=== PATIENT | female | born 1975 | race Caucasian/White ===

== ENCOUNTER 2017-10-23 00:30 | Inpatient (IN) | payer MEDICARE ==
[2017-10-23] MEDS ORDERED: ALBUTEROL SULFATE 0.083% NEB 2.5 MG/3 ML AMPUL NEB ONE ×2 (00:42)
[2017-10-23] MEDS ORDERED: METHYLPREDNISOLONE INJ 125 MG/2 ML SDV IV ONE (00:42)
[2017-10-23] MEDS ORDERED: NORMAL SALINE 1000 ML 1,000 ML IV ONE (00:43)
[2017-10-23] MEDS ORDERED: AZITHROMYCIN 250 MG TABLET PO ONE (00:47)
[2017-10-23] MEDS ORDERED: CEFTRIAXONE INJ 1000 MG VIAL IV ONE (00:47)
--- NOTE | 2017-10-23 01:28 | RADIOLOGY REPORT (SQ) ---
CXR- 1 VIEW Clinical history: Cough and shortness of breath. Comparison: None. Technique: 1 view of the chest submitted for review. Findings: Lungs are adequately expanded. Port-A-Cath is demonstrated with tip overlying the SVC. There are some early interstitial opacities seen in the lung bases. No effusion. The cardiac silhouette measures within normal. Pulmonary vascularity is unremarkable. Osseous structures are within normal limits for age. Impression: Interstitial opacity seen in the lung bases. Please correlate for early pneumonia.
[2017-10-23 02:02] LABS: VENOUS BLOOD BASE EXCESS -1.1 mmol/L; VENOUS BLOOD HCO3 24.1 mmol/L (20-32); VENOUS BLOOD PH 7.38 (7.30-7.42)
[2017-10-23 02:04] LABS: HEMATOCRIT 36.7 % (36.0-47.0); HEMOGLOBIN 12.1 g/dL (12.0-15.5); MEAN CORPUSCULAR HEMOGLOBIN 27.3 pg (27.0-33.4); MEAN CORPUSCULAR VOLUME 83 fl (80-97); PLATELET COUNT 355 10^3/uL (150-450); RED BLOOD COUNT 4.44 10^6/uL (3.72-5.28); RED CELL DISTRIBUTION WIDTH 15.4 % (11.5-14.0); WHITE BLOOD COUNT 29.9 10^3/uL (4.0-10.5)
[2017-10-23 02:17] LABS: ANION GAP 14 (5-19); BLOOD UREA NITROGEN 10 mg/dL (7-20); CALCIUM 8.6 mg/dL (8.4-10.2); CARBON DIOXIDE 20 mmol/L (22-30); CHLORIDE 108 mmol/L (98-107); GLUCOSE 142 mg/dL (75-110); POTASSIUM 4.4 mmol/L (3.6-5.0); SODIUM 141.6 mmol/L (137-145)
[2017-10-23 02:25] LABS: ABSOLUTE LYMPHOCYTES# (MANUAL) 1.2 10^3/uL (0.5-4.7); ABSOLUTE MONOCYTES # (MANUAL) 1.2 10^3/uL (0.1-1.4); ABSOLUTE NEUTROPHILS# (MANUAL) 27.5 10^3/uL (1.7-8.2); BAND NEUTROPHILS % (MANUAL) 1 % (3-5); BASOPHILS % (MANUAL) 0 % (0-2); EOSINOPHILS % (MANUAL) 0 % (0-6); LYMPHOCYTES % (MANUAL) 4 % (13-45); MONOCYTES % (MANUAL) 4 % (3-13); SEGMENTED NEUTROPHILS % (MAN) 91 % (42-78); TOTAL CELLS COUNTED 100
[2017-10-23 02:30] LABS: ANISOCYTOSIS 1+
[2017-10-23 02:31] LABS: HYPOCHROMASIA 1+
[2017-10-23 02:33] LABS: PLATELET COMMENT ADEQUATE
--- NOTE | 2017-10-23 02:50 | ER Document Report ---
ED General - General Chief Complaint: Respiratory Distress Stated Complaint: RESPIRATORY DISTRESS Time Seen by Provider: 10/23/17 00:42 Notes: Patient is a 42-year-old female with a past medical history of chronic interstitial lung disease, sarcoidosis with pulmonary involvement, asthma, prior tracheostomy due to respiratory failure who presents with 24 hours of progressively worsening shortness of breath, cough, sputum production and generalized weakness. She was brought in by EMS, initially found to be saturating in 89% on room air and in moderate respiratory distress. She reports that receiving multiple nebulizer she has had significant improvement of her symptoms. She notes that any exertion worsened her symptoms. The patient reports that she does not require oxygen at baseline although does have it available to her as an as-needed basis. She did not bring her medications with her as she is currently visiting from out of town. She has been unable to contact her doctor regarding today's concerns. She states that symptoms feel very similar to when she has had a pneumonia in the past. TRAVEL OUTSIDE OF THE [place] IN LAST 30 DAYS: No - Related Data Allergies/Adverse Reactions: No Known Allergies Allergy (Verified 10/23/17 01:11) Past Medical History - General Information source: Patient - Social History Smoking Status: Current Every Day Smoker Frequency of alcohol use: Occasional Drug Abuse: None Family History: Reviewed & Not Pertinent Patient has suicidal ideation: No Patient has homicidal ideation: No Renal/ Medical History: Denies: Hx Peritoneal Dialysis Musculoskeletal Medical History: Reports Hx Arthritis Psychiatric Medical History: Reports: Hx Bipolar Disorder Review of Systems - Review of Systems Notes: Constitutional: Positive for fever. HENT: Negative for sore throat. Eyes: Negative for visual changes. Cardiovascular: Negative for chest pain. Respiratory: Positive for shortness of breath. Gastrointestinal: Negative for abdominal pain, vomiting or diarrhea. Genitourinary: Negative for dysuria. Musculoskeletal: Negative for back pain. Skin: Negative for rash. Neurological: Negative for headaches, weakness or numbness. 10 point ROS negative except as marked above and in HPI. Physical Exam - Vital signs Interpretation: Tachycardic, Tachypneic, Febrile Notes: PHYSICAL EXAMINATION: GENERAL: Appears moderately uncomfortable but in no acute distress HEAD: Atraumatic, normocephalic. EYES: Pupils equal round and reactive to light, extraocular movements intact, sclera anicteric, conjunctiva are normal. ENT: nares patent, oropharynx clear without exudates. Moderately dry mucous membranes. NECK: Normal range of motion, supple without lymphadenopathy LUNGS: Moderate tachypnea but no respiratory distress or retractions. Scattered respiratory wheezing in all lung boswell. Bibasilar crackles. HEART: Regular tachycardia without murmurs ABDOMEN: Soft, nontender, normoactive bowel sounds. No guarding, no rebound. No masses appreciated. EXTREMITIES: Normal range of motion, no pitting or edema. No cyanosis. NEUROLOGICAL: No focal neurological deficits. Moves all extremities spontaneously and on command. PSYCH: Normal mood, normal affect. SKIN: Warm, Dry, normal turgor, no rashes or lesions noted. Course - Re-evaluation Re-evalutation: 10/23/17 02:51 Presentation of a 42-year-old female with a past medical history of chronic interstitial lung disease, sarcoidosis with associated pulmonary nodules, asthma , history of prior tracheostomy from respiratory failure who presents with shortness of breath, cough and fever. Apparently for EMS the patient was hypoxic to 89%. After receiving nebulizers in route to the hospital her work of breathing has apparently much improved at the time of my initial evaluation she is currently saturating 91% on room air. No longer in respiratory distress although is noted to be mild the tachypneic. Fever is confirmed here at 101.7 F. Patient has scattered wheezing throughout, crackles at the bases bilaterally. Appears mildly dehydrated. Vitals notable for tachycardia, mild persistent hypoxemia. Chest x-ray is obtained showing bibasilar infiltrates consistent with developing pneumonia. Patient's labs are notable for marked leukocytosis with a neutrophilic predominance. Mild elevation of lactate at 2.9. Chemistries otherwise unremarkable. VBG unremarkable. Given patient's chronic lung disease, markedly elevated leukocytosis, elevated lactate, and oxygen dependence to maintain her saturations above 92% she will require hospitalization. I discussed with the hospitalist who has agreed. The patient is agreeable with the treatment plan. - Laboratory Result Diagrams: 10/23/17 01:47 10/23/17 01:47 Laboratory results interpreted by me: 10/23/17 10/23/17 10/23/17 01:47 01:47 01:47 WBC 29.9 H RDW 15.4 H Seg Neuts % (Manual) 91 H Band Neutrophils % 1 L Lymphocytes % (Manual) 4 L Abs Neuts (Manual) 27.5 H Chloride 108 H Carbon Dioxide 20 L Glucose 142 H Lactic Acid 2.7 H - Diagnostic Test Radiology reviewed: Image reviewed, Reports reviewed Radiology results interpreted by me: 10/23/17 02:51 Chest x-ray: Patchy bibasilar infiltrates Discharge - Discharge Clinical Impression: Sarcoidosis, Chronic interstitial lung disease, Hypoxemia Sepsis Qualifiers: Sepsis type: sepsis due to unspecified organism Qualified Code(s): A41.9 - Sepsis, unspecified organism Pneumonia Qualifiers: Pneumonia type: due to unspecified organism Laterality: bilateral Lung location : lower lobe of lung Qualified Code(s): J18.1 - Lobar pneumonia, unspecified organism Condition: Fair Disposition: ADMITTED INPATIENT Admitting Provider: Hospitalist Unit Admitted: Telemetry
[2017-10-23] MEDS: NORMAL SALINE 1000 ML 1,000 ML IV PRN ×2 (03:52→16:01)
--- NOTE | 2017-10-23 06:22 | PDOC H&P ---
History of Present Illness Admission Date/PCP: 10/23/17 02:44 Patient complains of: Dyspnea History of Present Illness: RABIA GARCIA is a 42 year old female presented to the emergency department secondary to shortness of breath. Patient has a complex past medical history including chronic interstitial lung disease, history of sarcoidosis which is now become pulmonary fibrosis and asthma. States she uses oxygen intermittently at home. States yesterday as she was traveling from [place] where she lives she became short of breath with minimal exertion and was noted to be hypoxic. States she had left her medications at home and has not been feeling well for the past 2 days. Patient was noted to have a temperature of 101.9 and was tachycardic upon arrival to ER. Past Medical History Past Medical History: RA, Sjogrens, Antisynthetase syndrome. Pulmonary Medical History: Reports: Asthma, Chronic Obstructive Pulmonary Disease (COPD), Intubation, Pneumonia Pulmonary History Note: Chronic interstitial lung disease, hx of sarcoidosis with progression to pulmonary fibrosis, Musculoskeltal Medical History: Reports: Arthritis Psychiatric Medical History: Reports: Bipolar Disorder Hematology: Reports: Anemia Past Surgical History Past Surgical History: Reports: Section, Cholecystectomy, Tonsillectomy , Vascular Surgery - Ligation and closure of saphenous vein Social History Smoking Status: Current Every Day Smoker Family History Family History: Reviewed & Not Pertinent Parental Family History Reviewed: Yes Children Family History Reviewed: Yes Sibling(s) Family History Reviewed.: Yes Medication/Allergy Allergies/Adverse Reactions: No Known Allergies Allergy (Verified 10/23/17 01:11) Review of Systems Constitutional: PRESENT: chills, fever(s), night sweats Cardiovascular: PRESENT: dyspnea on exertion. ABSENT: chest pain, edema, palpitations Respiratory: PRESENT: cough, dyspnea. ABSENT: hemoptysis, sputum Gastrointestinal: ABSENT: abdominal pain, nausea, vomiting Physical Exam Vital Signs: Temp Pulse Resp BP Pulse Ox 17 99/63 L 91 L 10/23/17 03:01 10/23/17 03:01 10/23/17 03:01 Intake & Output 10/21/17 10/22/17 10/23/17 06:59 06:59 06:59 Intake Total 1000 Balance 1000 Weight 120.202 kg General appearance: PRESENT: no acute distress Head exam: PRESENT: atraumatic Eye exam: PRESENT: conjunctiva pink, EOMI, PERRLA Ear exam: PRESENT: normal external ear exam Mouth exam: PRESENT: moist, neck supple, tongue midline Respiratory exam: PRESENT: decreased breath sounds, rhonchi, unlabored, wheezes. ABSENT: accessory muscle use Cardiovascular exam: PRESENT: RRR, +S1, +S2 Pulses: PRESENT: normal carotid pulses Vascular exam: PRESENT: normal capillary refill GI/Abdominal exam: PRESENT: normal bowel sounds, soft. ABSENT: distended, tenderness Rectal exam: PRESENT: deferred Extremities exam: ABSENT: calf tenderness Musculoskeletal exam: PRESENT: ambulatory, full ROM Neurological exam: PRESENT: alert, awake, oriented to person, oriented to place , oriented to time, CN II-XII grossly intact Psychiatric exam: PRESENT: normal mood Results Laboratory Results: 10/23/17 10/23/17 10/23/17 01:47 01:47 01:47 WBC 29.9 H Potassium 4.4 Chloride 108 H Creatinine 0.70 Lactic Acid 2.7 H Assessment & Plan - Diagnosis (1) Sepsis Qualifiers: Sepsis type: sepsis due to unspecified organism Qualified Code(s): A41.9 - Sepsis, unspecified organism Is this a current diagnosis for this admission?: Yes Plan: Patient appear to be septic upon arrival to emergency department. WBC 29,000, fever with temp of 101.9 and tachycardia. Maintain IV fluids overnight. Continue with IV antibiotic therapy. Blood cultures pending. DuoNeb every 4h as needed. Continue to trend lactic acid within normal limits. (2) Pneumonia Qualifiers: Pneumonia type: due to unspecified organism Laterality: bilateral Lung location: lower lobe of lung Qualified Code(s): J18.1 - Lobar pneumonia, unspecified organism Is this a current diagnosis for this admission?: Yes Plan: She started on azithromycin plus Rocephin, will continue with his regimen. Maintain IV fluids. Tylenol every 6 as needed fever. Telemetry monitoring. (3) Chronic interstitial lung disease Is this a current diagnosis for this admission?: Yes Plan: The patient's home medications and continue Solu-Medrol IV every 6 hours scheduled, DuoNeb's every 4 hours as needed. (4) Autoimmune disorder Is this a current diagnosis for this admission?: Yes Plan: Patient has a history of multiple autoimmune disorders including rheumatoid arthritis, Sjogren's, and anti-synthetase syndrome. Continue home medications, will adjust accordingly. - Time Time Spent: 30 to 50 Minutes Smoking Cessation Education: over 10 minutes Medications reviewed and adjusted accordingly: Yes Anticipated discharge: Home Within: within 36 hours
[2017-10-23] MEDS: GUAIFENESIN 600 MG TABLET.SA PO SCH ×2 (11:39→22:15)
[2017-10-23] MEDS: ENOXAPARIN SODIUM INJ 40 MG/0.4 ML DISP.SYRIN SUBCUT SCH (11:40)
[2017-10-23] MEDS: IPRATROPIUM/ALBUTEROL 0.5-2.5 MG/3 ML AMPUL NEB PRN ×2 (12:28→19:30)
[2017-10-23] MEDS ORDERED: MORPHINE SULFATE 10 MG/ML INJ IV ONE (14:00)
[2017-10-23 14:42] LABS: HEMATOCRIT 35.6 % (36.0-47.0); HEMOGLOBIN 11.5 g/dL (12.0-15.5); MEAN CORPUSCULAR HEMOGLOBIN 27.1 pg (27.0-33.4); MEAN CORPUSCULAR HGB CONC 32.2 g/dL (32.0-36.0); MEAN CORPUSCULAR VOLUME 84 fl (80-97); PLATELET COUNT 335 10^3/uL (150-450); RED BLOOD COUNT 4.24 10^6/uL (3.72-5.28); RED CELL DISTRIBUTION WIDTH 15.7 % (11.5-14.0); WHITE BLOOD COUNT 22.2 10^3/uL (4.0-10.5)
[2017-10-23 14:57] LABS: ALANINE AMINOTRANSFERASE 18 U/L (9-52); ALBUMIN 3.5 g/dL (3.5-5.0); ALKALINE PHOSPHATASE 98 U/L (38-126); ANION GAP 12 (5-19); ASPARTATE AMINO TRANSFERASE 27 U/L (14-36); BILIRUBIN,DIRECT 0.3 mg/dL (0.0-0.4); BILIRUBIN,TOTAL 0.3 mg/dL (0.2-1.3); BLOOD UREA NITROGEN 14 mg/dL (7-20); CALCIUM 8.8 mg/dL (8.4-10.2); CARBON DIOXIDE 20 mmol/L (22-30); CHLORIDE 112 mmol/L (98-107); CREATINE KINASE 30 U/L (30-135); GLUCOSE 166 mg/dL (75-110); PHOSPHORUS 2.4 mg/dL (2.5-4.5); POTASSIUM 4.8 mmol/L (3.6-5.0); SODIUM 143.9 mmol/L (137-145); TOTAL PROTEIN 6.8 g/dL (6.3-8.2)
[2017-10-23 15:08] LABS: ABSOLUTE LYMPHOCYTES# (MANUAL) 0.9 10^3/uL (0.5-4.7); ABSOLUTE MONOCYTES # (MANUAL) 0.4 10^3/uL (0.1-1.4); ABSOLUTE NEUTROPHILS# (MANUAL) 20.9 10^3/uL (1.7-8.2); BASOPHILS % (MANUAL) 0 % (0-2); EOSINOPHILS % (MANUAL) 0 % (0-6); LYMPHOCYTES % (MANUAL) 4 % (13-45); MONOCYTES % (MANUAL) 2 % (3-13); SEGMENTED NEUTROPHILS % (MAN) 94 % (42-78); TOTAL CELLS COUNTED 100
[2017-10-23 15:09] LABS: ANISOCYTOSIS 1+; CREATINE KINASE MB 0.65 ng/mL (<4.55); HYPOCHROMASIA SLIGHT; PLATELET COMMENT ADEQUATE
[2017-10-23 15:18] LABS: TROPONIN I < 0.012 ng/mL
[2017-10-23 15:32] LABS: APPEARANCE,URINE CLEAR; BILIRUBIN,URINE NEGATIVE (NEGATIVE); COLOR,URINE YELLOW; GLUCOSE, URINE NEGATIVE (NEGATIVE); KETONES,URINE NEGATIVE (NEGATIVE); LEUKOCYTE ESTERASE,URINE TRACE (NEGATIVE); NITRITE,URINE NEGATIVE (NEGATIVE); PROTEIN,URINE NEGATIVE (NEGATIVE); URINE SPECIFIC GRAVITY 1.021; UROBILINOGEN,URINE NEGATIVE mg/dL (<2.0)
--- NOTE | 2017-10-23 15:33 | RADIOLOGY REPORT (SQ) ---
EXAM DESCRIPTION: CTA CHEST COMPLETED DATE/TIME: 10/23/2017 3:12 pm REASON FOR STUDY: acute respiratory failure hypoxia/ ? IPF vs VTE. COMPARISON: Chest radiograph 10/23/2017 TECHNIQUE: CT scan of the chest performed using helical scanning technique with dynamic intravenous contrast injection. Images reviewed with lung, soft tissue and bone windows. Reconstructed coronal and sagittal MPR images reviewed. Additional 3 dimensional post-processing performed to develop Maximal Intensity Projection images (AK P). All images stored on PACS. All CT scanners at this facility use dose modulation, iterative reconstruction, and/or weight based d osing when appropriate to reduce radiation dose to as low as reasonably achievable (ALARA). [facility]: Dose Right [facility]: CareDose [facility]: Dose Right [facility]: Teradose 4D [facility]: [employer] CONTRAST TYPE AND DOSE: contrast/concentration: Isovue 350.00 mg/ml; Total Contrast Delivered: 87.0 ml; Total Saline Delivered: 99.0 ml Contrast bolus optimized for the pulmonary arteries. Not diagnostic for the aorta. RENAL FUNCTION: BUN 10; creatinine 0.70 RADIATION DOSE: CT Rad equipment meets quality standard of care and radiation dose reduction techniq ues were employed. CTDIvol: 33.1 - 40.1 mGy. DLP: 1485 mGy-cm. . LIMITATIONS: None. FINDINGS: LUNGS AND PLEURA: Patchy ground-glass opacities are seen throughout the lungs. No pleural effusion. No pneumothorax. The airways appear normal. AORTA AND GREAT VESSELS: No aneurysm. Contrast bolus not optimized for the aorta. HEART: No pericardial effusion. No significant coronary artery calcifications. PULMONARY ARTERIES: No emboli visualized in the main pulmonary arteries or the segmental branches. HILAR AND MEDIASTINAL STRUCTURES: Scattered reactive appearing mediastinal lymph nodes, the largest o f which is seen in the AP window measuring 1.2 cm in the short axis. HARDWARE: Right anterior chest wall Port-A-Cath. UPPER ABDOMEN: Status post cholecystectomy and bariatric surgery. THYROID AND OTHER SOFT TISSUES: No masses. No adenopathy. BONES: No acute or significant finding. 3D MIPS: Confirm above findings. OTHER: No other significant finding. IMPRESSION: 1. No pulmonary embolus. 2. Patchy ground-glass opacities are seen throughout the lungs. Differential considerations are bro ad to include both infectious (especially atypical) and noninfectious processes. COMMENT: Quality ID # [id number]: Final reports with documentation of one or more dose reduction techniques (e.g., Automated exposure control, adjustment of the mA and/or kV according to patient size, use of iterative reconstruction technique) TECHNICAL DOCUMENTATION: JOB ID: [id number] [employer]- All Rights Reserved Reading location - IP/workstation name: [email or web address]
[2017-10-23 15:37] LABS: FREE T4 (FREE THYROXINE) 1.09 ng/dL (0.78-2.19)
[2017-10-23 15:51] LABS: THYROID STIMULATING HORMONE 1.78 uIU/mL (0.47-4.68)
--- NOTE | 2017-10-23 17:28 | EKG REPORT ---
SEVERITY:- BORDERLINE ECG - SINUS TACHYCARDIA BORDERLINE PROLONGED QT INTERVAL : Confirmed by: Chloe Mares MD 23-Oct-2017 17:28:11
[2017-10-23] MEDS ORDERED: OXYCODONE-ACETAMINOPHEN 5-325 MG TABLET PO PRN (20:46)
[2017-10-23 20:58] LABS: CREATINE KINASE MB 0.82 ng/mL (<4.55); TROPONIN I < 0.012 ng/mL
--- NOTE | 2017-10-23 21:21 | PDOC PROGRESS REPORT ---
Subjective Progress Note for:: 10/23/17 Subjective:: Patient is a 42-year-old morbidly obese female admitted to the hospital for shortness of breath. Patient has complex medical history history of sarcoid and interstitial pulmonary fibrosis. 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 Patient states that this is happened to her before she has not been feeling well for the past few days. Currently patient is satting 90% on nasal cannula. Currently patient is sitting upright is able to complete her sentences answers questions herself. Patient is currently a smoker. Patient did have a miscarriage one time first trimester. Reason For Visit: SEPSIS, PNEUMONIA Physical Exam Vital Signs: Temp Pulse Resp BP Pulse Ox 98.0 F 108 H 18 125/81 92 10/23/17 19:12 10/23/17 19:31 10/23/17 19:31 10/23/17 19:12 10/23/17 19:31 Pulse Oximeter Continuous Start: 10/23/17 02: 39 Freq: RTQ4 Status: Active Document 10/23/17 19:31 CMI (Rec: 10/23/17 19:35 CMI [email or web address]) Pulse Oximetry Assessment Oxygen Saturation (92-100) 92 Oxygen Flow Rate (L/min) 13 Oxygen Delivery Method Partial-Rebreather Equipment Usage Equipment in Use Continuous SpO2 Machine # 3 Intake & Output 10/22/17 10/23/17 10/24/17 06:59 06:59 06:59 Intake Total 1000 1000 Balance 1000 1000 Weight 265 lb 296 lb 11.875 oz General appearance: PRESENT: no acute distress, cooperative, morbidly obese Head exam: PRESENT: atraumatic, normocephalic Eye exam: PRESENT: EOMI Ear exam: PRESENT: normal external ear exam Respiratory exam: PRESENT: wheezes. ABSENT: accessory muscle use, clear to auscultation deondre Cardiovascular exam: PRESENT: RRR Pulses: ABSENT: normal carotid pulses GI/Abdominal exam: PRESENT: normal bowel sounds, soft. ABSENT: distended, mass , tenderness Rectal exam: PRESENT: deferred Musculoskeletal exam: PRESENT: ambulatory Neurological exam: PRESENT: alert, awake, oriented to time, CN II-XII grossly intact Results Laboratory Results: 10/23/17 13:54 10/23/17 13:54 10/23/17 10/23/17 10/23/17 06:15 13:54 13:54 WBC 22.2 H RBC 4.24 Hgb 11.5 L Hct 35.6 L MCV 84 MCH 27.1 MCHC 32.2 RDW 15.7 H Plt Count 335 Seg Neutrophils % Not Reportable Lymphocytes % Not Reportable Monocytes % Not Reportable Eosinophils % Not Reportable Basophils % Not Reportable Absolute Neutrophils Not Reportable Absolute Lymphocytes Not Reportable Absolute Monocytes Not Reportable Absolute Eosinophils Not Reportable Absolute Basophils Not Reportable Sodium 143.9 Potassium 4.8 Chloride 112 H Carbon Dioxide 20 L Anion Gap 12 BUN 14 Creatinine 0.59 Est GFR ( Amer) > 60 Est GFR (Non-Af Amer) > 60 Glucose 166 H Lactic Acid 3.4 H Calcium 8.8 Phosphorus 2.4 L Magnesium 2.3 Total Bilirubin 0.3 AST 27 ALT 18 Alkaline Phosphatase 98 Total Protein 6.8 Albumin 3.5 TSH Free T4 Urine Color Urine Appearance Urine pH Ur Specific [place] Urine Protein Urine Glucose (UA) Urine Ketones Urine Blood Urine Nitrite Ur Leukocyte Esterase Urine WBC (Auto) Urine RBC (Auto) 10/23/17 10/23/17 13:54 15:17 WBC RBC Hgb Hct MCV MCH MCHC RDW Plt Count Seg Neutrophils % Lymphocytes % Monocytes % Eosinophils % Basophils % Absolute Neutrophils Absolute Lymphocytes Absolute Monocytes Absolute Eosinophils Absolute Basophils Sodium Potassium Chloride Carbon Dioxide Anion Gap BUN Creatinine Est GFR ( Amer) Est GFR (Non-Af Amer) Glucose Lactic Acid Calcium Phosphorus Magnesium Total Bilirubin AST ALT Alkaline Phosphatase Total Protein Albumin TSH 1.78 Free T4 1.09 Urine Color YELLOW Urine Appearance CLEAR Urine pH 6.0 Ur Specific [place] 1.021 Urine Protein NEGATIVE Urine Glucose (UA) NEGATIVE Urine Ketones NEGATIVE Urine Blood NEGATIVE Urine Nitrite NEGATIVE Ur Leukocyte Esterase TRACE H Urine WBC (Auto) 2 Urine RBC (Auto) 0 10/23/17 10/23/17 10/23/17 13:54 13:54 13:54 Creatine Kinase 30 CK-MB (CK-2) 0.65 Troponin I < 0.012 NT-Pro-B Natriuret Pep 235 H Impressions: Chest/Abdomen CTA 10/23/17 00:00 IMPRESSION: 1. No pulmonary embolus. 2. Patchy ground-glass opacities are seen throughout the lungs. Differential considerations are broad to include both infectious (especially atypical) and noninfectious processes. Assessment & Plan - Diagnosis (1) Acute respiratory failure Qualifiers: Respiratory failure complication: hypoxia Qualified Code(s): J96.01 - Acute respiratory failure with hypoxia Is this a current diagnosis for this admission?: Yes Plan: Attribute patient's acute respiratory failure with hypoxia bronchitis versus sarcoidosis. We will treat patient with IV antibiotics with a community-acquired pneumonia regimen and also steroids and nebulizer treatment. 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 Patient states she has been told that she has what looks like it could be a mixed connective tissue or an autoimmune disorder however they are not certain. (4) History of sudden cardiac arrest successfully resuscitated Is this a current diagnosis for this admission?: Yes Plan: Patient has a history of cardiac arrest. Patient does not know the etiology. We will monitor with telemetry. Patient already following with cardiology. - Time Time Spent with patient: 15-24 minutes Anticipated discharge: Home - Inpatient Certification Based on my medical assessment, after consideration of the patient's comorbidities, presenting symptoms, or acuity I expect that the services needed warrant INPATIENT care.: Yes I certify that my determination is in accordance with my understanding of Medicare's requirements for reasonable and necessary INPATIENT services [42 CFR 412.3e].: Yes Medical Necessity: Need for Nebulizer Therapy and Monitoring of Response
[2017-10-23] MEDS ORDERED: AZITHROMYCIN 500 MG in DEXTROSE 5%-WATER 250 ML IV SCH (22:00)
[2017-10-23] MEDS ORDERED: CEFTRIAXONE 1 GM/D5W RTU 1 GM/50 ML RTUPB IV SCH (22:00)
[2017-10-23] MEDS: METHYLPREDNISOLONE INJ 40 MG/1 ML SDV IV SCH (22:14)
[2017-10-23] MEDS: GABAPENTIN 300 MG CAPSULE PO SCH (22:15)
[2017-10-23] MEDS: LAMOTRIGINE 100 MG TABLET PO SCH (22:15)
[2017-10-23] MEDS: LITHIUM CARBONATE 450 MG TABLET.ER PO SCH (22:16)
[2017-10-23] MEDS ORDERED: CEFTRIAXONE INJ 500 MG VIAL ONE (22:25)
[2017-10-23] MEDS ORDERED: CEFTRIAXONE INJ 250 MG VIAL ONE (22:26)
[2017-10-23] MEDS ORDERED: AZITHROMYCIN INJ 500 MG VIAL IV PRN (22:59)
[2017-10-23] MEDS ORDERED: AZITHROMYCIN 500 MG in DEXTROSE 5%-WATER 250 ML IV ONE (23:00)
[2017-10-24 04:36] LABS: HEMATOCRIT 35.4 % (36.0-47.0); HEMOGLOBIN 11.1 g/dL (12.0-15.5); MEAN CORPUSCULAR HEMOGLOBIN 26.5 pg (27.0-33.4); MEAN CORPUSCULAR HGB CONC 31.4 g/dL (32.0-36.0); MEAN CORPUSCULAR VOLUME 84 fl (80-97); PLATELET COUNT 325 10^3/uL (150-450); RED CELL DISTRIBUTION WIDTH 15.7 % (11.5-14.0); WHITE BLOOD COUNT 27.3 10^3/uL (4.0-10.5)
[2017-10-24 05:33] LABS: CREATINE KINASE MB 0.87 ng/mL (<4.55)
[2017-10-24] MEDS: METHYLPREDNISOLONE INJ 40 MG/1 ML SDV IV SCH ×3 (05:41→22:57)
[2017-10-24] MEDS: NORMAL SALINE 1000 ML 1,000 ML IV PRN ×2 (05:41→16:47)
[2017-10-24 05:48] LABS: TROPONIN I < 0.012 ng/mL
[2017-10-24 06:03] LABS: ABSOLUTE LYMPHOCYTES# (MANUAL) 0.3 10^3/uL (0.5-4.7); ABSOLUTE MONOCYTES # (MANUAL) 0.3 10^3/uL (0.1-1.4); ABSOLUTE NEUTROPHILS# (MANUAL) 26.2 10^3/uL (1.7-8.2); BAND NEUTROPHILS % (MANUAL) 1 % (3-5); BASOPHILS % (MANUAL) 1 % (0-2); EOSINOPHILS % (MANUAL) 1 % (0-6); LYMPHOCYTES % (MANUAL) 1 % (13-45); MONOCYTES % (MANUAL) 1 % (3-13); SEGMENTED NEUTROPHILS % (MAN) 95 % (42-78); TOTAL CELLS COUNTED 100; TOXIC GRANULATION 2+
[2017-10-24 06:04] LABS: PLATELET COMMENT ADEQUATE
[2017-10-24 06:06] LABS: BURR CELLS SLIGHT; POIKILOCYTOSIS SLIGHT
[2017-10-24] MEDS: IPRATROPIUM/ALBUTEROL 0.5-2.5 MG/3 ML AMPUL NEB PRN ×4 (08:03→23:45)
[2017-10-24] MEDS: GUAIFENESIN 600 MG TABLET.SA PO SCH ×2 (09:41→22:58)
[2017-10-24] MEDS: ENOXAPARIN SODIUM INJ 40 MG/0.4 ML DISP.SYRIN SUBCUT SCH (09:41)
[2017-10-24] MEDS: GABAPENTIN 300 MG CAPSULE PO SCH ×4 (09:41→22:58)
[2017-10-24] MEDS: LAMOTRIGINE 100 MG TABLET PO SCH ×2 (09:42→22:58)
[2017-10-24 14:07] LABS: CREATINE KINASE MB 0.78 ng/mL (<4.55)
[2017-10-24 14:13] LABS: TROPONIN I < 0.012 ng/mL
[2017-10-24 14:44] LABS: ALANINE AMINOTRANSFERASE 10 U/L (9-52); ALBUMIN 3.4 g/dL (3.5-5.0); ALKALINE PHOSPHATASE 87 U/L (38-126); ANION GAP 12 (5-19); ASPARTATE AMINO TRANSFERASE 34 U/L (14-36); BILIRUBIN,DIRECT 0.3 mg/dL (0.0-0.4); BILIRUBIN,TOTAL 0.3 mg/dL (0.2-1.3); BLOOD UREA NITROGEN 18 mg/dL (7-20); CALCIUM 8.9 mg/dL (8.4-10.2); CARBON DIOXIDE 18 mmol/L (22-30); CHLORIDE 117 mmol/L (98-107); GLUCOSE 137 mg/dL (75-110); POTASSIUM 5.3 mmol/L (3.6-5.0); SODIUM 146.8 mmol/L (137-145); TOTAL PROTEIN 6.6 g/dL (6.3-8.2)
[2017-10-24] MEDS ORDERED: NYSTATIN CREAM 15 GM TP ONE (15:30)
[2017-10-24] MEDS: OXYCODONE-ACETAMINOPHEN 5-325 MG TABLET PO PRN ×2 (16:47→23:04)
[2017-10-24] MEDS: NYSTATIN/DEXAMETH/DIPHEN SUSP 120 ML PO SCH ×2 (18:12→23:01)
[2017-10-24 21:03] LABS: CREATINE KINASE MB 0.82 ng/mL (<4.55)
[2017-10-24 21:05] LABS: TROPONIN I < 0.012 ng/mL
[2017-10-24] MEDS: LITHIUM CARBONATE 450 MG TABLET.ER PO SCH (22:58)
[2017-10-24] MEDS: BENZONATATE 100 MG CAPSULE PO SCH (22:58)
[2017-10-24] MEDS: CEFTRIAXONE SODIUM 1,000 MG in NORMAL SALINE 50 ML IV SCH (23:02)
[2017-10-24] MEDS: AZITHROMYCIN 500 MG in DEXTROSE 5%-WATER 250 ML IV SCH (23:03)
[2017-10-25] MEDS ORDERED: SODIUM POLYSTYRENE SULFONATE 15 GM/60 ML PO ONE (00:24)
--- NOTE | 2017-10-25 00:24 | PDOC PROGRESS REPORT ---
Subjective Progress Note for:: 10/25/17 Subjective:: Patient is a 42-year-old morbidly obese female admitted to the hospital for shortness of breath. Patient has complex medical history history of sarcoid and interstitial pulmonary fibrosis. Patient does have a physical therapist assistant. Patient states that this is happened to her before she has not been feeling well for the past few days. Currently patient is satting 90% on nasal cannula. Currently patient is sitting upright is able to complete her sentences answers questions herself. Patient is currently a smoker. Patient did have a miscarriage one time first trimester. 10/24/2017 Patient seen today for follow-up. Patient states that she is in a lot of pain is coughing. Discussed with patient about getting evaluated by pulmonary and cardiology here. It is imperative that we identify that this chest discomfort that is not improving with pulmonary treatments and antibiotics Is not related to her heart and only her lungs. Patient agrees to see the specialist here proceed with consults with Dr. Mares and Dr. Sharpe. Pain medication frequency has been increased CBC shows a white count of 27,000 segmented neutrophils of 95 hour patient is on steroids D-dimer was elevated with his negative CTA. Reason For Visit: SEPSIS, PNEUMONIA Physical Exam Vital Signs: Temp Pulse Resp BP Pulse Ox 97.8 F 103 H 24 H 150/70 H 97 10/24/17 23:24 10/24/17 23:48 10/24/17 23:48 10/24/17 23:24 10/24/17 23:48 Pulse Oximeter Continuous Start: 10/23/17 02: 39 Freq: RTQ4 Status: Active Document 10/24/17 19:34 [facility] (Rec: 10/24/17 23:35 [facility] [id number]) Pulse Oximetry Assessment Oxygen Saturation (92-100) 94 Oxygen Flow Rate (L/min) 5 Oxygen Delivery Method Nasal Cannula Fraction of Inspired Oxygen (FIO2) 40 Equipment Usage Equipment in Use Continuous SpO2 Machine # N-3 Intake & Output 10/23/17 10/24/17 10/25/17 06:59 06:59 06:59 Intake Total 1000 2450 1655 Balance 1000 2450 1655 Weight 265 lb 296 lb 11.875 oz General appearance: PRESENT: no acute distress, cooperative, morbidly obese Head exam: PRESENT: atraumatic, normocephalic Eye exam: ABSENT: EOMI Respiratory exam: PRESENT: rhonchi, wheezes Cardiovascular exam: PRESENT: RRR GI/Abdominal exam: PRESENT: soft. ABSENT: distended, tenderness Results Laboratory Results: 10/24/17 03:59 10/24/17 13:07 10/24/17 10/24/17 10/24/17 03:59 13:07 20:20 WBC 27.3 H RBC 4.20 Hgb 11.1 L Hct 35.4 L MCV 84 MCH 26.5 L MCHC 31.4 L RDW 15.7 H Plt Count 325 Seg Neutrophils % Not Reportable Lymphocytes % Not Reportable Monocytes % Not Reportable Eosinophils % Not Reportable Basophils % Not Reportable Absolute Neutrophils Not Reportable Absolute Lymphocytes Not Reportable Absolute Monocytes Not Reportable Absolute Eosinophils Not Reportable Absolute Basophils Not Reportable Sodium 146.8 H Potassium 5.3 H Chloride 117 H Carbon Dioxide 18 L Anion Gap 12 BUN 18 Creatinine 0.48 L Est GFR ( Amer) > 60 Est GFR (Non-Af Amer) > 60 Glucose 137 H Calcium 8.9 Total Bilirubin 0.3 AST 34 ALT 10 Alkaline Phosphatase 87 C-Reactive Protein 48.6 H Total Protein 6.6 Albumin 3.4 L 10/23/17 10/23/17 10/23/17 13:54 13:54 13:54 Creatine Kinase 30 CK-MB (CK-2) 0.65 Troponin I < 0.012 NT-Pro-B Natriuret Pep 235 H 10/23/17 10/23/17 10/24/17 20:10 20:10 03:59 Creatine Kinase 30 24 L CK-MB (CK-2) 0.82 Troponin I < 0.012 NT-Pro-B Natriuret Pep 10/24/17 10/24/17 10/24/17 03:59 13:07 13:07 Creatine Kinase 25 L CK-MB (CK-2) 0.87 0.78 Troponin I < 0.012 < 0.012 NT-Pro-B Natriuret Pep 10/24/17 10/24/17 20:20 20:20 Creatine Kinase < 20 L CK-MB (CK-2) 0.82 Troponin I < 0.012 NT-Pro-B Natriuret Pep Impressions: Chest/Abdomen CTA 10/23/17 00:00 IMPRESSION: 1. No pulmonary embolus. 2. Patchy ground-glass opacities are seen throughout the lungs. Differential considerations are broad to include both infectious (especially atypical) and noninfectious processes. Assessment & Plan - Diagnosis (1) Acute respiratory failure Qualifiers: Respiratory failure complication: hypoxia Qualified Code(s): J96.01 - Acute respiratory failure with hypoxia Is this a current diagnosis for this admission?: Yes Plan: Attribute patient's acute respiratory failure with hypoxia bronchitis versus sarcoidosis. We will treat patient with IV antibiotics with a community-acquired pneumonia regimen and also steroids and nebulizer treatment. Cardiology and pulmonary consult placed. (2) Morbid obesity with BMI of 45.0-49.9, adult Is this a current diagnosis for this admission?: Yes Plan: Nutrition consult & evaluate for patient for diabetes with hemoglobin A1c checked Hemoglobin A1c is normal patient is nondiabetic. (3) Autoimmune disorder Is this a current diagnosis for this admission?: Yes Plan: Patient has a history of interstitial pulmonary fibrosis she sees a optics manufacturing technician and is unclear if she has mixed connective tissue disorder or lupus or scleroderma. Patient states she has been told that she has what looks like it could be a mixed connective tissue or an autoimmune disorder however they are not certain. She does state that she has had a bronchoscopy and a biopsy that has confirmed that she has sarcoidosis. (4) History of sudden cardiac arrest successfully resuscitated Is this a current diagnosis for this admission?: Yes Plan: Patient has a history of cardiac arrest. Patient does not know the etiology. We will monitor with telemetry. Patient already following with cardiology rocky adams for cardiology. (5) Hyperkalemia Is this a current diagnosis for this admission?: Yes Plan: Seen today for the first time. No medications that are causing the hyperkalemia. We will however treat patient with 15 g of Kayexalate 1. We will get a Lamictal level and lamotrigine level as well.
[2017-10-25] MEDS ORDERED: MORPHINE SULFATE 10 MG/ML INJ IV PRN (00:43)
[2017-10-25] MEDS: NORMAL SALINE 1000 ML 1,000 ML IV PRN (05:15)
[2017-10-25] MEDS: BENZONATATE 100 MG CAPSULE PO SCH ×3 (05:16→22:42)
[2017-10-25] MEDS: METHYLPREDNISOLONE INJ 40 MG/1 ML SDV IV SCH ×3 (05:16→21:19)
[2017-10-25 05:19] LABS: ANION GAP 11 (5-19); BLOOD UREA NITROGEN 15 mg/dL (7-20); CALCIUM 8.5 mg/dL (8.4-10.2); CARBON DIOXIDE 21 mmol/L (22-30); CHLORIDE 113 mmol/L (98-107); GLUCOSE 137 mg/dL (75-110); PHOSPHORUS 2.9 mg/dL (2.5-4.5); POTASSIUM 4.7 mmol/L (3.6-5.0); SODIUM 144.5 mmol/L (137-145)
[2017-10-25 05:35] LABS: CREATINE KINASE MB 0.74 ng/mL (<4.55)
[2017-10-25 05:38] LABS: TROPONIN I < 0.012 ng/mL
[2017-10-25] MEDS: IPRATROPIUM/ALBUTEROL 0.5-2.5 MG/3 ML AMPUL NEB PRN ×2 (07:51→14:30)
[2017-10-25] MEDS: OXYCODONE-ACETAMINOPHEN 5-325 MG TABLET PO PRN ×3 (08:25→21:20)
--- NOTE | 2017-10-25 10:49 | RADIOLOGY REPORT (SQ) ---
EXAM DESCRIPTION: CHEST 2 VIEWS COMPLETED DATE/TIME: 10/25/2017 9:40 am REASON FOR STUDY: pneumonia COMPARISON: 10/23/2017 NUMBER OF VIEWS: Two view TECHNIQUE: Frontal and lateral radiographic images of the chest acquired. LIMITATIONS: None. FINDINGS: LUNGS AND PLEURA: Bilateral lower lobe airspace disease not significantly changed. No eff usions. MEDIASTINUM AND HILAR STRUCTURES: Stable heart size and mediastinal structures. HEART AND VASCULAR STRUCTURES: Stable appearance. SUPPORT DEVICES: Appropriate location without change. BONES: No acute findings. OTHER: No other significant finding. IMPRESSION: Bilateral pneumonia. No significant change. TECHNICAL DOCUMENTATION: JOB ID: [id number] [employer]- All Rights Reserved Reading location - IP/workstation name: [email or web address]
[2017-10-25] MEDS: NYSTATIN/DEXAMETH/DIPHEN SUSP 120 ML PO SCH ×4 (10:57→21:19)
[2017-10-25] MEDS: LAMOTRIGINE 100 MG TABLET PO SCH ×2 (10:57→21:18)
[2017-10-25] MEDS: ENOXAPARIN SODIUM INJ 40 MG/0.4 ML DISP.SYRIN SUBCUT SCH (11:01)
[2017-10-25] MEDS: GUAIFENESIN 600 MG TABLET.SA PO SCH ×2 (11:02→21:19)
[2017-10-25] MEDS: GABAPENTIN 300 MG CAPSULE PO SCH ×4 (11:02→21:19)
--- NOTE | 2017-10-25 12:15 | ST Inp Modified Barium Swallow ---
Medical Diagnosis - Medical Diagnoses Medical Diagnosis Description & ICD-10 Code(s): pneumonia, acute respiratory failure ST Inpatient [facility] [place] - General Date: 10/25/17 - History History Obtained From: Other - EMR -: Medical - per EMR: prior medical history includes chronic interstitial lung disease, sarcoidosis, pulmonary fibrosis, asthma. Patient was admitted 10/23 due to dyspnea. Patient reports that she was trached a few years ago and has had a more effortful swallow since that time. No diet modifications reported. Medications: Medications Reviewed Allergies: No known allergies - Subjective Current Nutritional Means: PO Current PO Diet: Regular Current Symptoms: Coughing, Pneumonia Pain: Patient reports, 0/5 - Objective Assessment: Upright, Left Lateral - Food Trials Food Trials Used: Thin liquids, Pureed, Regular The Patient: Was Able to Self Feed - Assessment Labial Function: Within Normal Limits Lingual Function: Within Normal Limits Mandibular Function: Within Normal Limits Dentition: Dentures-Upper, Dentures-Lower - Pharyngeal Stage Initiation of Pharyngeal Stage: Normal Decreased Laryngeal Elevation: No Reduced Velo-Pharyngeal Closure: no Reduced Pressure Generation: No Reduced Tongue Base Retraction: No Pre-Swallowing Pooling in Valleculae: None Pre-Swallowing Pooling in Pyriforms: None Reduced Thyro-Hyiod Approximation: No Reduced Epiglottic Excursion: No Reduced Pharyngeal Peristalsis: No Post Swallow Residuals in Valleculae: None Post Swallow Residuals in Pyriforms: None - Impression/Summary Laryngeal Penetration: No Tracheal Aspiration: no Patient Presents With: Normal swallow at eval Risk of Aspiration: Minimal Risk of Nutritional Compromise: WNL - Recommendations Solid Diet Recommendations: Regular Liquid Diet Recommendations: Thin Regular Diet: Yes Dysphagia Therapy with LAMP INSPECTOR: No Recommended Techniques: Fully Upright During Meal, Small Bites and Sips - Time Total Time: 20 Total Timed Minutes: 20
[2017-10-25 12:46] LABS: CREATINE KINASE MB 0.71 ng/mL (<4.55)
[2017-10-25 12:48] LABS: TROPONIN I < 0.012 ng/mL
--- NOTE | 2017-10-25 15:49 | RADIOLOGY REPORT (SQ) ---
EXAM DESCRIPTION: BARBARA SWALLOW COMPLETED DATE/TIME: 10/25/2017 9:59 am REASON FOR STUDY: chocking COUGH, PNEUMONIA, ACUTE RESPIRATORY FAILURE. PATIENT HISTORY OF SARCOID COMPARISON: None. TECHNIQUE: Videofluoroscopic swallowing examination was performed in conjunction with speech patholo gy. Videofluoroscopic imaging was obtained and reviewed and these are the findings: RADIATION DOSE: Fluoro time 1.08 minutes 1 images saved to PACS. LIMITATIONS: None FINDINGS: The patient was brought into the fluoro room and placed upright on a modified barium swall ow chair. The patient was then given multiple consistencies mixed with barium to swallow under live fluoroscopic video guidance. According to the Speech Pathologist there was no penetration or aspirat ion. Please refer to the speech pathology report for further details. IMPRESSION: NO EVIDENCE OF PENETRATION OR ASPIRATIONPLEASE SEE SPEECH PATHOLOGIST REPORT FOR OTHER F INDINGS AND RECOMMENDATIONS. COMMENT: None Quality ID [id number]: Final reports for procedures using fluoroscopy that document radiation exposure karla cristy, or exposure time and number of fluorographic images (if radiation exposure indices are not avail able) TECHNICAL DOCUMENTATION: JOB ID: [id number] [employer]- All Rights Reserved Reading location - IP/workstation name: [email or web address]
--- NOTE | 2017-10-25 20:21 | PDOC PROGRESS REPORT ---
Subjective Progress Note for:: 10/25/17 Subjective:: The patient is resting in her bed. She has her BiPAP in place. She sitting up in the bed and appears to be quite comfortable. She states that this is her usual pattern when she is admitted to the hospital and it usually takes several days of IV steroids to turn her breathing around. She does follow closely with her doctors as an outpatient. She denies fever chills. No chest pain or heart palpitations. She is quite comfortable with the BiPAP in place. No nausea vomiting or diarrhea. No urinary complaints Reason For Visit: SEPSIS, PNEUMONIA Physical Exam Vital Signs: Temp Pulse Resp BP Pulse Ox 97.9 F 97 18 109/72 98 10/25/17 15:34 10/25/17 19:00 10/25/17 15:34 10/25/17 15:34 10/25/17 16:00 Pulse Oximeter Continuous Start: 10/23/17 02: 39 Freq: RTQ4 Status: Active Document 10/25/17 16:00 [facility] (Rec: 10/25/17 17:33 [facility] [id number]) Pulse Oximetry Assessment Oxygen Saturation (92-100) 98 Oxygen Delivery Method Bi-pap Fraction of Inspired Oxygen (FIO2) 50 Equipment Usage Equipment in Use Continuous SpO2 Machine # 3 Intake & Output 10/24/17 10/25/17 10/26/17 06:59 06:59 06:59 Intake Total 2450 4055 1999 Balance 2450 4055 1999 Weight 134.6 kg 134.9 kg General appearance: PRESENT: no acute distress, morbidly obese, well-developed, well-nourished, other - She is wearing BiPAP Head exam: PRESENT: atraumatic, normocephalic Mouth exam: PRESENT: moist, tongue midline Respiratory exam: PRESENT: decreased breath sounds - She is diminished bilaterally but her lungs sound fairly clear. ABSENT: rales, rhonchi, wheezes Cardiovascular exam: PRESENT: RRR. ABSENT: diastolic murmur, rubs, systolic murmur GI/Abdominal exam: PRESENT: normal bowel sounds, soft, other - Her abdomen is morbidly obese. ABSENT: distended, guarding, mass, organolmegaly, rebound, tenderness Rectal exam: PRESENT: deferred Extremities exam: PRESENT: full ROM, pedal edema. ABSENT: calf tenderness, clubbing Musculoskeletal exam: PRESENT: ambulatory Neurological exam: PRESENT: alert, awake, oriented to person, oriented to place , oriented to time, oriented to situation, CN II-XII grossly intact. ABSENT: motor sensory deficit Psychiatric exam: PRESENT: appropriate affect, normal mood. ABSENT: homicidal ideation, suicidal ideation Skin exam: PRESENT: dry, intact, warm. ABSENT: cyanosis, rash Results Laboratory Results: 10/24/17 03:59 10/25/17 03:54 10/24/17 10/25/17 20:20 03:54 Sodium 144.5 Potassium 4.7 Chloride 113 H Carbon Dioxide 21 L Anion Gap 11 BUN 15 Creatinine 0.54 Est GFR ( Amer) > 60 Est GFR (Non-Af Amer) > 60 Glucose 137 H Calcium 8.5 Phosphorus 2.9 Magnesium 2.3 C-Reactive Protein 48.6 H 10/23/17 15:17 Clean Catch Midstream Legionella Urinary Antigen - Final 10/23/17 15:17 Clean Catch Midstream Urine Culture - Final Mixed Urogenital Maryan 10/23/17 10/23/17 10/23/17 13:54 13:54 13:54 Creatine Kinase 30 CK-MB (CK-2) 0.65 Troponin I < 0.012 NT-Pro-B Natriuret Pep 235 H 10/23/17 10/23/17 10/24/17 20:10 20:10 03:59 Creatine Kinase 30 24 L CK-MB (CK-2) 0.82 Troponin I < 0.012 NT-Pro-B Natriuret Pep 10/24/17 10/24/17 10/24/17 03:59 13:07 13:07 Creatine Kinase 25 L CK-MB (CK-2) 0.87 0.78 Troponin I < 0.012 < 0.012 NT-Pro-B Natriuret Pep 10/24/17 10/24/17 10/25/17 20:20 20:20 03:54 Creatine Kinase < 20 L < 20 L CK-MB (CK-2) 0.82 Troponin I < 0.012 NT-Pro-B Natriuret Pep 10/25/17 10/25/17 10/25/17 03:54 11:41 11:41 Creatine Kinase < 20 L CK-MB (CK-2) 0.74 0.71 Troponin I < 0.012 < 0.012 NT-Pro-B Natriuret Pep Impressions: Chest/Abdomen CTA 10/23/17 00:00 IMPRESSION: 1. No pulmonary embolus. 2. Patchy ground-glass opacities are seen throughout the lungs. Differential considerations are broad to include both infectious (especially atypical) and noninfectious processes. Chest X-Ray 10/25/17 00:00 IMPRESSION: Bilateral pneumonia. No significant change. Modified Barium Swallow 10/25/17 00:00 IMPRESSION: NO EVIDENCE OF PENETRATION OR ASPIRATIONPLEASE SEE SPEECH PATHOLOGIST REPORT FOR OTHER FINDINGS AND RECOMMENDATIONS. Assessment & Plan - Diagnosis (1) Sepsis Is this a current diagnosis for this admission?: Yes Plan: Resolving. Her sepsis is due to underlying pneumonia (2) Acute and chronic respiratory failure Is this a current diagnosis for this admission?: Yes Plan: She is still requiring BiPAP support. She states that this is her usual pattern and it usually takes several days to wean her off the BiPAP. Continue aggressive breathing treatments and therapy as outlined below. (3) Pneumonia Is this a current diagnosis for this admission?: Yes Plan: The patient is being covered for community-acquired pathogen such as gram positives and atypicals. She is on Rocephin and Zithromax. I have a low threshold for broadening her antibiotic coverage if she does not improve. She has multiple autoimmune diseases. She is steroid dependent on prednisone daily. She is at risk for more serious gram-negative pneumonias. For now we will continue the current regimen as she does seem to be improving. (4) Interstitial lung disease Is this a current diagnosis for this admission?: Yes Plan: Continue IV steroids (5) Sarcoidosis Is this a current diagnosis for this admission?: Yes Plan: As above. Continue IV steroids (6) Autoimmune disorder Is this a current diagnosis for this admission?: Yes Plan: The patient has a mixed connective tissue disorder and follows with client reporting associate as an outpatient. (7) Morbid obesity Is this a current diagnosis for this admission?: Yes Plan: Dietary discretion is advised (8) Cardiopulmonary arrest with successful resuscitation Is this a current diagnosis for this admission?: Yes Plan: She has a history of the sudden pulmonary arrest requiring intubation in the past. - Time Time Spent with patient: 25-34 minutes - Inpatient Certification Medical Necessity: Need for Nebulizer Therapy and Monitoring of Response - Inpatient hospitalization remains necessary. The patient is currently on BiPAP. She is requiring parenteral antibiotics and steroids. She is morbidly obese complicating her whole picture. Timing of disposition will be determined by her clinical course. I suspect she will be here for several more days., Need for IV Antibiotics, Other
[2017-10-25] MEDS: LITHIUM CARBONATE 450 MG TABLET.ER PO SCH (21:18)
[2017-10-25] MEDS: CEFTRIAXONE SODIUM 1,000 MG in NORMAL SALINE 50 ML IV SCH (22:43)
[2017-10-25] MEDS: AZITHROMYCIN 500 MG in DEXTROSE 5%-WATER 250 ML IV SCH (22:43)
[2017-10-26] MEDS: METHYLPREDNISOLONE INJ 40 MG/1 ML SDV IV SCH ×3 (06:18→22:13)
[2017-10-26] MEDS: BENZONATATE 100 MG CAPSULE PO SCH ×4 (06:18→22:13)
[2017-10-26] MEDS: OXYCODONE-ACETAMINOPHEN 5-325 MG TABLET PO PRN ×2 (10:17→16:43)
[2017-10-26] MEDS: GUAIFENESIN 600 MG TABLET.SA PO SCH ×2 (10:17→22:13)
[2017-10-26] MEDS: ENOXAPARIN SODIUM INJ 40 MG/0.4 ML DISP.SYRIN SUBCUT SCH (10:18)
[2017-10-26] MEDS: LAMOTRIGINE 100 MG TABLET PO SCH ×2 (10:18→22:12)
[2017-10-26] MEDS: NYSTATIN/DEXAMETH/DIPHEN SUSP 120 ML PO SCH ×4 (10:18→22:12)
[2017-10-26] MEDS: GABAPENTIN 300 MG CAPSULE PO SCH ×4 (10:18→22:13)
[2017-10-26] MEDS: IPRATROPIUM/ALBUTEROL 0.5-2.5 MG/3 ML AMPUL NEB PRN (11:30)
--- NOTE | 2017-10-26 18:32 | PDOC PROGRESS REPORT ---
Subjective Progress Note for:: 10/26/17 Subjective:: The patient is a 42-year-old morbidly obese female who was admitted to the hospital for shortness of breath. She has a complex past medical history of sarcoidosis and pulmonary fibrosis. She has had a respiratory arrest before requiring resuscitation and intubation due to her pulmonary issues. 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 and also follows at [facility]. She is visiting the [facility] when her breathing took a turn for the worse. The patient was admitted to the hospital. She was found to be having an acute exacerbation she was found to have a septic picture with an underlying pneumonia and flareup of her breathing problems. She initially was requiring BiPAP support. She is receiving currently she is receiving IV Rocephin and Zithromax. She is improving on this regimen. She is also requiring IV steroids. Today when I saw her she is able to take the BiPAP off for much longer periods of time. She still has it sitting in her lap and is wearing it frequently. She states that she is feeling better. She states it usually takes several days for her breathing to turn around. She denies fever or shaking chills. No chest pain or heart palpitations. Her shortness of breath is still present and she still has some conversational dyspnea but it is greatly improved. She has had no nausea vomiting or diarrhea. She is tolerating her diet. No urinary complaints. Reason For Visit: SEPSIS, PNEUMONIA Physical Exam Vital Signs: Temp Pulse Resp BP Pulse Ox 97.8 F 93 18 127/78 H 94 10/26/17 15:59 10/26/17 15:59 10/26/17 15:59 10/26/17 15:59 10/26/17 15:59 Pulse Oximeter Continuous Start: 10/23/17 02: 39 Freq: RTQ4 Status: Active Document 10/26/17 11:43 [facility] (Rec: 10/26/17 11:43 [facility] [id number]) Pulse Oximetry Assessment Oxygen Saturation (92-100) 97 Oxygen Flow Rate (L/min) 5 Oxygen Delivery Method Nasal Cannula Equipment Usage Equipment in Use Continuous SpO2 Machine # 7 Intake & Output 10/25/17 10/26/17 10/27/17 06:59 06:59 06:59 Intake Total 4055 2566 1260 Balance 4055 2566 1260 Weight 134.9 kg 135.4 kg General appearance: PRESENT: morbidly obese, well-developed, well-nourished, other - She does have conversational dyspnea. ABSENT: no acute distress Head exam: PRESENT: atraumatic, normocephalic Mouth exam: PRESENT: moist, tongue midline Respiratory exam: PRESENT: other - She is moving air much better today. She really is not wheezing today. Cardiovascular exam: PRESENT: RRR. ABSENT: diastolic murmur, rubs, systolic murmur GI/Abdominal exam: PRESENT: normal bowel sounds, soft, other - Her abdomen is morbidly obese. I cannot assess for organomegaly due to the patient's body habitus. ABSENT: distended, guarding, mass, rebound, tenderness Rectal exam: PRESENT: deferred Extremities exam: PRESENT: pedal edema Musculoskeletal exam: PRESENT: ambulatory Neurological exam: PRESENT: alert, awake, oriented to person, oriented to place , oriented to time, oriented to situation, CN II-XII grossly intact. ABSENT: motor sensory deficit Psychiatric exam: PRESENT: appropriate affect, normal mood. ABSENT: homicidal ideation, suicidal ideation Skin exam: PRESENT: dry, intact, warm. ABSENT: cyanosis, rash Results Laboratory Results: 10/24/17 03:59 10/25/17 03:54 10/23/17 15:17 Clean Catch Midstream Legionella Urinary Antigen - Final 10/23/17 10/23/17 10/23/17 13:54 13:54 13:54 Creatine Kinase 30 CK-MB (CK-2) 0.65 Troponin I < 0.012 NT-Pro-B Natriuret Pep 235 H 10/23/17 10/23/17 10/24/17 20:10 20:10 03:59 Creatine Kinase 30 24 L CK-MB (CK-2) 0.82 Troponin I < 0.012 NT-Pro-B Natriuret Pep 10/24/17 10/24/17 10/24/17 03:59 13:07 13:07 Creatine Kinase 25 L CK-MB (CK-2) 0.87 0.78 Troponin I < 0.012 < 0.012 NT-Pro-B Natriuret Pep 10/24/17 10/24/17 10/25/17 20:20 20:20 03:54 Creatine Kinase < 20 L < 20 L CK-MB (CK-2) 0.82 Troponin I < 0.012 NT-Pro-B Natriuret Pep 10/25/17 10/25/17 10/25/17 03:54 11:41 11:41 Creatine Kinase < 20 L CK-MB (CK-2) 0.74 0.71 Troponin I < 0.012 < 0.012 NT-Pro-B Natriuret Pep Impressions: Chest/Abdomen CTA 10/23/17 00:00 IMPRESSION: 1. No pulmonary embolus. 2. Patchy ground-glass opacities are seen throughout the lungs. Differential considerations are broad to include both infectious (especially atypical) and noninfectious processes. Chest X-Ray 10/25/17 00:00 IMPRESSION: Bilateral pneumonia. No significant change. Modified Barium Swallow 10/25/17 00:00 IMPRESSION: NO EVIDENCE OF PENETRATION OR ASPIRATIONPLEASE SEE SPEECH PATHOLOGIST REPORT FOR OTHER FINDINGS AND RECOMMENDATIONS. Assessment & Plan - Diagnosis (1) Sepsis Is this a current diagnosis for this admission?: Yes Plan: Resolving. Her sepsis is due to underlying pneumonia. Her sepsis symptoms are improving. (2) Acute and chronic respiratory failure Is this a current diagnosis for this admission?: Yes Plan: She is weaning herself off of the BiPAP slowly. She is still wearing it frequently. Respiratory failure is due to underlying pneumonia and flareup of her pulmonary fibrosis and interstitial lung disease. Continue BiPAP and oxygen support as needed. (3) Pneumonia Is this a current diagnosis for this admission?: Yes Plan: The patient is being covered for community-acquired pathogen such as gram positives and atypicals. She is on Rocephin and Zithromax. I have a low threshold for broadening her antibiotic coverage if she does not improve. She has multiple autoimmune diseases. She is steroid dependent on prednisone daily. She is at risk for more serious gram-negative pneumonias. For now we will continue the current regimen as she does seem to be improving. (4) Interstitial lung disease Is this a current diagnosis for this admission?: Yes Plan: Continue IV steroids (5) Sarcoidosis Is this a current diagnosis for this admission?: Yes Plan: As above. Continue IV steroids (6) Autoimmune disorder Is this a current diagnosis for this admission?: Yes Plan: The patient has a mixed connective tissue disorder and follows with a block setter gypsum as an outpatient. (7) Morbid obesity Is this a current diagnosis for this admission?: Yes Plan: Dietary discretion is advised (8) Cardiopulmonary arrest with successful resuscitation Is this a current diagnosis for this admission?: Yes Plan: She has a history of the sudden pulmonary arrest requiring resuscitation and intubation in the past. - Time Time Spent with patient: 25-34 minutes - Inpatient Certification Medical Necessity: Need for IV Antibiotics, Other - Inpatient hospitalization remains necessary. This patient has multiple comorbidities and is morbidly obese. She is acute on chronic respiratory failure and still is requiring frequent BiPAP. She has ongoing need for parenteral steroids as well as antibiotics. Timing of disposition will be determined by her clinical course
[2017-10-26] MEDS ORDERED: KETOROLAC TROMETHAMINE INJ/PF 30 MG/1 ML SDV IV ONE (20:30)
[2017-10-26] MEDS: LITHIUM CARBONATE 450 MG TABLET.ER PO SCH (22:12)
[2017-10-26] MEDS: AZITHROMYCIN 250 MG TABLET PO SCH (22:13)
[2017-10-26] MEDS: CEFTRIAXONE SODIUM 1,000 MG in NORMAL SALINE 50 ML IV SCH (22:13)
[2017-10-27] MEDS: OXYCODONE-ACETAMINOPHEN 5-325 MG TABLET PO PRN ×2 (05:52→17:51)
[2017-10-27] MEDS: BENZONATATE 100 MG CAPSULE PO SCH ×3 (05:52→22:26)
[2017-10-27] MEDS: METHYLPREDNISOLONE INJ 40 MG/1 ML SDV IV SCH ×2 (05:52→15:04)
[2017-10-27 08:09] LABS: MYCOPLASMA PNEUMONIAE IGG AB 522 U/mL (0-99); MYCOPLASMA PNEUMONIAE IGM AB <770 U/mL (0-769)
[2017-10-27] MEDS: IPRATROPIUM/ALBUTEROL 0.5-2.5 MG/3 ML AMPUL NEB PRN ×2 (09:01→20:38)
[2017-10-27] MEDS: LAMOTRIGINE 100 MG TABLET PO SCH ×2 (10:00→22:25)
[2017-10-27] MEDS: GABAPENTIN 300 MG CAPSULE PO SCH ×4 (10:00→22:26)
[2017-10-27] MEDS: GUAIFENESIN 600 MG TABLET.SA PO SCH ×2 (10:00→22:25)
[2017-10-27] MEDS: ENOXAPARIN SODIUM INJ 40 MG/0.4 ML DISP.SYRIN SUBCUT SCH (10:01)
[2017-10-27] MEDS: NYSTATIN/DEXAMETH/DIPHEN SUSP 120 ML PO SCH ×4 (10:01→22:25)
--- NOTE | 2017-10-27 19:50 | PDOC PROGRESS REPORT ---
Subjective Progress Note for:: 10/27/17 Subjective:: Feeling much better today. Still with dry cough, but most of this is chronic. She is trying to titrate oxygen. No chest pain or palpitations, no nausea vomiting no fever or chills. Reason For Visit: SEPSIS, PNEUMONIA Physical Exam Vital Signs: Temp Pulse Resp BP Pulse Ox 98.0 F 79 16 123/86 H 97 10/27/17 15:14 10/27/17 15:14 10/27/17 15:14 10/27/17 15:14 10/27/17 16:00 Pulse Oximeter Continuous Start: 10/23/17 02: 39 Freq: RTQ4 Status: Active Document 10/27/17 16:00 HCR (Rec: 10/27/17 17:53 HCR [id number]) Pulse Oximetry Assessment Oxygen Saturation (92-100) 97 Oxygen Flow Rate (L/min) 6 Oxygen Delivery Method Nasal Cannula Equipment Usage Equipment in Use Continuous SpO2 Machine # 3 Intake & Output 10/26/17 10/27/17 10/28/17 06:59 06:59 06:59 Intake Total 2566 1735 947 Balance 2566 1735 947 Weight 135.4 kg 137.6 kg General appearance: PRESENT: morbidly obese, well-developed, well-nourished, other - She does have conversational dyspnea. ABSENT: no acute distress Head exam: PRESENT: atraumatic, normocephalic Mouth exam: PRESENT: moist, tongue midline Respiratory exam: PRESENT: other - She is moving air fairly well. Bilateral occasional wheezing. Cardiovascular exam: PRESENT: RRR. ABSENT: diastolic murmur, rubs, systolic murmur GI/Abdominal exam: PRESENT: normal bowel sounds, soft, other - Her abdomen is morbidly obese. I cannot assess for organomegaly due to the patient's body habitus. ABSENT: distended, guarding, mass, rebound, tenderness Rectal exam: PRESENT: deferred Extremities exam: PRESENT: pedal edema Musculoskeletal exam: PRESENT: ambulatory Neurological exam: PRESENT: alert, awake, oriented to person, oriented to place , oriented to time, oriented to situation, CN II-XII grossly intact. ABSENT: motor sensory deficit Psychiatric exam: PRESENT: appropriate affect, normal mood. ABSENT: homicidal ideation, suicidal ideation Skin exam: PRESENT: dry, intact, warm. ABSENT: cyanosis, rash Results Laboratory Results: 10/24/17 03:59 10/25/17 03:54 10/23/17 10/23/17 10/23/17 13:54 13:54 13:54 Creatine Kinase 30 CK-MB (CK-2) 0.65 Troponin I < 0.012 NT-Pro-B Natriuret Pep 235 H 10/23/17 10/23/17 10/24/17 20:10 20:10 03:59 Creatine Kinase 30 24 L CK-MB (CK-2) 0.82 Troponin I < 0.012 NT-Pro-B Natriuret Pep 10/24/17 10/24/17 10/24/17 03:59 13:07 13:07 Creatine Kinase 25 L CK-MB (CK-2) 0.87 0.78 Troponin I < 0.012 < 0.012 NT-Pro-B Natriuret Pep 10/24/17 10/24/17 10/25/17 20:20 20:20 03:54 Creatine Kinase < 20 L < 20 L CK-MB (CK-2) 0.82 Troponin I < 0.012 NT-Pro-B Natriuret Pep 10/25/17 10/25/17 10/25/17 03:54 11:41 11:41 Creatine Kinase < 20 L CK-MB (CK-2) 0.74 0.71 Troponin I < 0.012 < 0.012 NT-Pro-B Natriuret Pep Impressions: Chest/Abdomen CTA 10/23/17 00:00 IMPRESSION: 1. No pulmonary embolus. 2. Patchy ground-glass opacities are seen throughout the lungs. Differential considerations are broad to include both infectious (especially atypical) and noninfectious processes. Chest X-Ray 10/25/17 00:00 IMPRESSION: Bilateral pneumonia. No significant change. Modified Barium Swallow 10/25/17 00:00 IMPRESSION: NO EVIDENCE OF PENETRATION OR ASPIRATIONPLEASE SEE SPEECH PATHOLOGIST REPORT FOR OTHER FINDINGS AND RECOMMENDATIONS. Assessment & Plan - Diagnosis (1) Acute and chronic respiratory failure Is this a current diagnosis for this admission?: Yes (2) Autoimmune disorder Is this a current diagnosis for this admission?: Yes (3) Hypoxemia Is this a current diagnosis for this admission?: Yes (4) Interstitial lung disease Is this a current diagnosis for this admission?: Yes (5) Morbid obesity Is this a current diagnosis for this admission?: Yes (6) Pneumonia Qualifiers: Pneumonia type: due to unspecified organism Laterality: bilateral Lung location: lower lobe of lung Qualified Code(s): J18.1 - Lobar pneumonia, unspecified organism Is this a current diagnosis for this admission?: Yes (8) Sepsis Qualifiers: Sepsis type: sepsis due to unspecified organism Qualified Code(s): A41.9 - Sepsis, unspecified organism Is this a current diagnosis for this admission?: Yes - Plan Summary Plan Summary: Patient slowly improving. Will continue steroids, antibiotics coverage for community-acquired pneumonia, and nebulizers. Continue weaning down O2 as tolerated. She is anxious to go home. Will transition from IV Solu-Medrol to prednisone and see how she is doing tomorrow. Suspect leukocytosis is secondary to steroids, with follow-up in a.m.
[2017-10-27] MEDS: LITHIUM CARBONATE 450 MG TABLET.ER PO SCH (22:25)
[2017-10-27] MEDS: AZITHROMYCIN 250 MG TABLET PO SCH (22:26)
[2017-10-27] MEDS: CEFTRIAXONE SODIUM 1,000 MG in NORMAL SALINE 50 ML IV SCH (22:26)
[2017-10-28] MEDS: OXYCODONE-ACETAMINOPHEN 5-325 MG TABLET PO PRN ×2 (01:26→10:11)
[2017-10-28 07:07] LABS: HEMATOCRIT 35.1 % (36.0-47.0); HEMOGLOBIN 11.4 g/dL (12.0-15.5); MEAN CORPUSCULAR HEMOGLOBIN 27.3 pg (27.0-33.4); MEAN CORPUSCULAR HGB CONC 32.5 g/dL (32.0-36.0); MEAN CORPUSCULAR VOLUME 84 fl (80-97); PLATELET COUNT 277 10^3/uL (150-450); RED BLOOD COUNT 4.17 10^6/uL (3.72-5.28); RED CELL DISTRIBUTION WIDTH 15.5 % (11.5-14.0); WHITE BLOOD COUNT 17.3 10^3/uL (4.0-10.5)
[2017-10-28 07:35] LABS: ABSOLUTE LYMPHOCYTES# (MANUAL) 3.5 10^3/uL (0.5-4.7); ABSOLUTE MONOCYTES # (MANUAL) 1.4 10^3/uL (0.1-1.4); ABSOLUTE NEUTROPHILS# (MANUAL) 12.3 10^3/uL (1.7-8.2); BAND NEUTROPHILS % (MANUAL) 2 % (3-5); BASOPHILS % (MANUAL) 0 % (0-2); EOSINOPHILS % (MANUAL) 1 % (0-6); LYMPHOCYTES % (MANUAL) 20 % (13-45); METAMYELOCYTES % (MANUAL) 1 % (0); MONOCYTES % (MANUAL) 8 % (3-13); SEGMENTED NEUTROPHILS % (MAN) 68 % (42-78); TOTAL CELLS COUNTED 100
[2017-10-28 07:36] LABS: ANISOCYTOSIS 1+; HYPOCHROMASIA 1+; PLATELET COMMENT ADEQUATE; POLYCHROMASIA SLIGHT; TOXIC GRANULATION SLIGHT; TOXIC VACUOLATION PRESENT
[2017-10-28] MEDS: ENOXAPARIN SODIUM INJ 40 MG/0.4 ML DISP.SYRIN SUBCUT SCH ×2 (09:57→10:03)
[2017-10-28] MEDS: GUAIFENESIN 600 MG TABLET.SA PO SCH (09:58)
[2017-10-28] MEDS: LAMOTRIGINE 100 MG TABLET PO SCH (09:58)
[2017-10-28] MEDS: GABAPENTIN 300 MG CAPSULE PO SCH ×2 (09:58→13:41)
[2017-10-28] MEDS: NYSTATIN/DEXAMETH/DIPHEN SUSP 120 ML PO SCH ×2 (09:59→13:41)
[2017-10-28] MEDS ORDERED: PREDNISONE 20 MG TABLET PO SCH (10:00)
[2017-10-28] MEDS: BENZONATATE 100 MG CAPSULE PO SCH (13:41)
--- NOTE | 2017-10-28 14:35 | PDOC DISCHARGE SUMMARY ---
General - Admit/Disc Date/PCP Admission Date/Primary Care Provider: 10/23/17 02:44 Discharge Date: 10/28/17 - Discharge Diagnosis (1) Sepsis Is this a current diagnosis for this admission?: Yes (2) Acute and chronic respiratory failure Is this a current diagnosis for this admission?: Yes (3) Autoimmune disorder Is this a current diagnosis for this admission?: Yes (4) Hypoxemia Is this a current diagnosis for this admission?: Yes (5) Interstitial lung disease Is this a current diagnosis for this admission?: Yes (6) Morbid obesity Is this a current diagnosis for this admission?: Yes (7) Pneumonia Is this a current diagnosis for this admission?: Yes - Additional Information Prescriptions: Azithromycin [Zithromax 250 mg Tablet] 500 mg PO QHS 3 Days tablet Cefdinir [Omnicef 300 mg Capsule] 1 cap PO BID 3 Days #6 capsule Fluconazole [Diflucan] 150 mg PO Q7D PRN #2 tablet PRN Reason: Home Medications: Albuterol Sulfate [Albuterol Sulfate 2.5mg/3 mL] 1 vial IH RTQ4HP PRN 10/23/17 Albuterol Sulfate [Proventil Hfa] 2 puff IH Q4HP PRN 10/23/17 Amitriptyline HCl [Elavil 75 mg Tablet] 75 mg PO QHS 10/23/17 Amlodipine Besylate [Norvasc 5 mg Tablet] 5 mg PO DAILYP PRN 10/23/17 Ascorbic Acid [Vitamin C] 2,000 mg PO DAILYP PRN 10/23/17 Clonazepam [Klonopin] 0.5 mg PO Q6HP PRN 10/23/17 Diphenhydramine HCl [Benadryl Allergy] 50 mg PO BIDP PRN 10/23/17 Docusate Sodium [Colace 100 mg Capsule] 200 mg PO DAILY 10/23/17 Ergocalciferol (Vitamin D2) [Vitamin D2] 50,000 unit PO Q7D 10/23/17 Ferrous Sulfate 325 mg PO DAILY 10/23/17 Fluticasone/Salmeterol [Advair 250-50 Diskus 14 Dose/Diskus] 2 puff IH Q4HP PRN 10/23/17 Folic Acid [Folvite 1 mg Tablet] 1 mg PO DAILY 10/23/17 Furosemide [Lasix 20 mg Tablet] 20 mg PO QAM 10/23/17 Gabapentin [Neurontin] 600 mg PO QID 10/23/17 Hydrocortisone [Hydrocortisone 1% Cream 28.35 gm] 1 applic TP DAILYP PRN Insulin Glargine,Hum.rec.anlog [Lantus Solostar] 10 unit SQ DAILY 10/23/17 Ipratropium/Albuterol Sulfate [Duoneb 3 ml Ampul] 3 ml NEB RTQ4HP PRN 10/23/17 Lamotrigine [Lamictal] 200 mg PO Q12 10/23/17 Lidocaine [Lidoderm 5% (700 mg) Transdermal Patch] 1 patch TP DAILY 10/23/17 [place] Carbonate [[place] Carbonate ER 450 mg Tablet] 450 mg PO QHS 10/23/17 Magnesium Oxide [Mag-Ox 400 mg Tablet] 400 mg PO BID 10/23/17 Metoprolol Tartrate [Lopressor 50 mg Tablet] 50 mg PO Q12HP PRN 10/23/17 Mv-Min/Iron/Folic/Calcium/Vitk [One-A-Day Women's Tablet] 1 each PO DAILY Oxycodone HCl/Acetaminophen [Percocet 5-325 mg Tablet] 1 tab PO Q12HP PRN Pantoprazole Sodium [Protonix] 40 mg PO DAILY 10/23/17 [place] HCl 5 mg PO QID 10/23/17 Potassium Chloride [Klor-Con 10] 10 meq PO DAILY 10/23/17 Prednisone [Deltasone 5 mg Tablet] 5 mg PO DAILY 10/23/17 Zolpidem Tartrate [Ambien] 20 mg PO HSP PRN 10/23/17 Azithromycin [Zithromax 250 mg Tablet] 500 mg PO QHS 3 Days tablet 10/28/17 Cefdinir [Omnicef 300 mg Capsule] 1 cap PO BID 3 Days #6 capsule 10/28/17 Fluconazole [Diflucan] 150 mg PO Q7D PRN #2 tablet 10/28/17 Prednisone [Deltasone 20 mg Tablet] 40 mg PO BID 4 Days tablet 10/28/17 History of Present Illness History of Present Illness: Patient admitted after presentation nursing HPI below: "RABIA GARCIA is a 42 year old female presented to the emergency department secondary to shortness of breath. Patient has a complex past medical history including chronic interstitial lung disease, history of sarcoidosis which is now become pulmonary fibrosis and asthma. States she uses oxygen intermittently at home. States yesterday as she was traveling from [place] where she lives she became short of breath with minimal exertion and was noted to be hypoxic. States she had left her medications at home and has not been feeling well for the past 2 days. Patient was noted to have a temperature of 101.9 and was tachycardic upon arrival to ER." Hospital Course Hospital Course: Patient was admitted and managed as follows: (1) Sepsis Is this a current diagnosis for this admission?: Yes Plan: Resolving. Her sepsis is due to underlying pneumonia. Her sepsis symptoms are improving. (2) Acute and chronic respiratory failure Is this a current diagnosis for this admission?: Yes Plan: She is weaning herself off of the BiPAP slowly. She is still wearing it frequently. Respiratory failure is due to underlying pneumonia and flareup of her pulmonary fibrosis and interstitial lung disease. Continue BiPAP and oxygen support as needed. (3) Pneumonia Is this a current diagnosis for this admission?: Yes Plan: The patient is being covered for community-acquired pathogen such as gram positives and atypicals. She is on Rocephin and Zithromax. I have a low threshold for broadening her antibiotic coverage if she does not improve. She has multiple autoimmune diseases. She is steroid dependent on prednisone daily. She is at risk for more serious gram-negative pneumonias. For now we will continue the current regimen as she does seem to be improving. (4) Interstitial lung disease Is this a current diagnosis for this admission?: Yes Plan: Continue IV steroids (5) Sarcoidosis Is this a current diagnosis for this admission?: Yes Plan: As above. 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 (7) Morbid obesity Is this a current diagnosis for this admission?: Yes Plan: Dietary discretion is advised (8) Cardiopulmonary arrest with successful resuscitation Is this a current diagnosis for this admission?: Yes Plan: She has a history of the sudden pulmonary arrest requiring resuscitation and intubation in the past. Physical Exam Vital Signs: Temp Pulse Resp BP Pulse Ox 98.0 F 81 18 122/74 90 L 10/28/17 11:13 10/28/17 11:13 10/28/17 11:13 10/28/17 11:13 10/28/17 12:00 Pulse Oximeter Continuous Start: 10/23/17 02: 39 Freq: RTQ4 Status: Active Document 10/28/17 12:00 [facility] (Rec: 10/28/17 12:27 [facility] [id number]) Pulse Oximetry Assessment Oxygen Saturation (92-100) 90 Oxygen Delivery Method Room Air Equipment Usage Equipment in Use Continuous SpO2 Machine # 3 Intake & Output 10/27/17 10/28/17 10/29/17 06:59 06:59 06:59 Intake Total 1735 1234 Balance 1735 1234 Weight 137.6 kg 138.2 kg Results Laboratory Results: 10/28/17 06:17 10/25/17 03:54 10/28/17 06:17 WBC 17.3 H RBC 4.17 Hgb 11.4 L Hct 35.1 L MCV 84 MCH 27.3 MCHC 32.5 RDW 15.5 H Plt Count 277 Seg Neutrophils % Not Reportable Lymphocytes % Not Reportable Monocytes % Not Reportable Eosinophils % Not Reportable Basophils % Not Reportable Absolute Neutrophils Not Reportable Absolute Lymphocytes Not Reportable Absolute Monocytes Not Reportable Absolute Eosinophils Not Reportable Absolute Basophils Not Reportable 10/23/17 03:16 Blood Blood Culture - Final NO GROWTH IN 5 DAYS 10/23/17 10/23/17 10/23/17 13:54 13:54 13:54 Creatine Kinase 30 CK-MB (CK-2) 0.65 Troponin I < 0.012 NT-Pro-B Natriuret Pep 235 H 10/23/17 10/23/17 10/24/17 20:10 20:10 03:59 Creatine Kinase 30 24 L CK-MB (CK-2) 0.82 Troponin I < 0.012 NT-Pro-B Natriuret Pep 10/24/17 10/24/17 10/24/17 03:59 13:07 13:07 Creatine Kinase 25 L CK-MB (CK-2) 0.87 0.78 Troponin I < 0.012 < 0.012 NT-Pro-B Natriuret Pep 10/24/17 10/24/17 10/25/17 20:20 20:20 03:54 Creatine Kinase < 20 L < 20 L CK-MB (CK-2) 0.82 Troponin I < 0.012 NT-Pro-B Natriuret Pep 10/25/17 10/25/17 10/25/17 03:54 11:41 11:41 Creatine Kinase < 20 L CK-MB (CK-2) 0.74 0.71 Troponin I < 0.012 < 0.012 NT-Pro-B Natriuret Pep Impressions: Chest/Abdomen CTA 10/23/17 00:00 IMPRESSION: 1. No pulmonary embolus. 2. Patchy ground-glass opacities are seen throughout the lungs. Differential considerations are broad to include both infectious (especially atypical) and noninfectious processes. Chest X-Ray 10/25/17 00:00 IMPRESSION: Bilateral pneumonia. No significant change. Modified Barium Swallow 10/25/17 00:00 IMPRESSION: NO EVIDENCE OF PENETRATION OR ASPIRATIONPLEASE SEE SPEECH PATHOLOGIST REPORT FOR OTHER FINDINGS AND RECOMMENDATIONS.
[2017-10-28 14:53] VITALS: BP 118/72
== END 2017-10-28 15:54 | disposition home or self-care (01) | DRG 871 ==
LOC: ER 00:30 → EH 02:44 → 5 16:41
PROVIDERS: ADMIT Family Medicine; ATTEND Family Medicine
PROC: 5A09457 Assistance with Respiratory Ventilation, 24-96 Consecutive Hours, Continuous Positive Airway Pressure (ICD-10-PCS; principal; 2017-10-23)
PROC: 3E0F73Z Introduction of Anti-inflammatory into Respiratory Tract, Via Natural or Artificial Opening (ICD-10-PCS; 2017-10-23)
DX: A41.9 Sepsis, unspecified organism (principal); J96.21 Acute and chronic respiratory failure with hypoxia; J18.1 Lobar pneumonia, unspecified organism; J84.9 Interstitial pulmonary disease, unspecified; Z68.43 Body mass index [BMI] 50.0-59.9, adult; M35.1 Other overlap syndromes; D89.89 Other specified disorders involving the immune mechanism, not elsewhere classified; E66.01 Morbid (severe) obesity due to excess calories; D86.9 Sarcoidosis, unspecified; J84.10 Pulmonary fibrosis, unspecified; J44.9 Chronic obstructive pulmonary disease, unspecified; M19.90 Unspecified osteoarthritis, unspecified site; F31.9 Bipolar disorder, unspecified; D64.9 Anemia, unspecified; F17.210 Nicotine dependence, cigarettes, uncomplicated; E87.5 Hyperkalemia; Z79.899 Other long term (current) drug therapy; Z79.4 Long term (current) use of insulin; Z99.81 Dependence on supplemental oxygen; Z90.49 Acquired absence of other specified parts of digestive tract; Z79.52 Long term (current) use of systemic steroids
CPT/HCPCS: 36415; 71045; 71046; 71275; 74230; 80048; 80053; 80175; 80178; 81001; 82550; 82553; 82803; 83036; 83605; 83735; 83880; 84100; 84439; 84443; 84484; 84703; 85025; 85379; 85652; 86140; 86738; 87040; 87086; 93005; 93010; 94010; 94660; 94762; 99285; J0456; J0696; J1650; J1885; J2270; J2920; J2930; J3490; J7030; J7060; J7512; J7620